=== PATIENT | female | born 1940 | race Caucasian/White ===

== ENCOUNTER 2022-02-19 13:04 | Emergency (ER) | payer OTHER ==
[~2022-02-19] VITALS: Ht 160 cm; Wt 87.1 kg
[2022-02-19] MEDS ORDERED: ARIPIPRAZOLE20 MG PO (13:13)
[2022-02-19] MEDS ORDERED: ATENOLOL50 M1 PO ×2 (13:13→13:14)
[2022-02-19] MEDS ORDERED: TRAZODONE50 MG PO (13:15)
[2022-02-19] MEDS ORDERED: ESCITALOPRAM OX20 MG PO (13:15)
[2022-02-19] MEDS ORDERED: SYMB80 INH (13:17)
[2022-02-19] MEDS ORDERED: ATIVAN0.5 MG PO (13:17)
[2022-02-19] MEDS ORDERED: BUSPIRONE15 MG PO (13:19)
[2022-02-19 13:42] LABS: BASO % 0.2 % (0.0-1.0); EOS # 0.1 10*3/uL (0.0-0.4); EOS % 3.1 % (1.0-4.0); HEMATOCRIT 38.8 % (37.0-47.0); LYMPH # 0.8 10*3/uL (1.3-4.4); LYMPH % 17.9 % (27.0-41.0); MEAN CELL VOLUME 92.6 fl (81.0-99.0); MEAN CORPUSCULAR HGB 27.9 pg (27.0-31.0); MEAN CORPUSCULAR HGB CONC 30.2 g/dl (33.0-37.0); MEAN PLATELET VOLUME 10.5 fl (9.6-12.3); MONO # 0.4 10*3/uL (0.1-1.0); MONO % 10.4 % (3.0-9.0); NEUT # 2.9 10*3/uL (2.3-7.9); NEUT % 68.2 % (47.0-73.0); PLATELET COUNT AUTOMATED 105 10*3/uL (130-400); RED BLOOD COUNT 4.19 10*6/uL (4.10-5.10); RED CELL DISTRI WIDTH 13.4 % (0-14.5); WHITE BLOOD COUNT 4.2 10*3/uL (4.8-10.8)
[2022-02-19 13:50] LABS: ACT PARTIAL THROMBO TIME 25.9 SECONDS (20.0-32.1)
[2022-02-19 14:00] LABS: ALKALINE PHOSPHATASE 57 U/L (45-117); BUN 17 mg/dl (7-24); CHLORIDE 107 mmol/L (98-107); CREATININE 0.74 mg/dL (0.55-1.02); LIPASE 76 U/L (73-393); POTASSIUM 4.1 mmol/L (3.5-5.1); SGOT/AST 24 IU/L (3-35); SGPT/ALT 19 U/L (12-78); SODIUM 146 mmol/L (136-145)
[2022-02-19 17:02] LABS: BILIRUBIN Negative (Negative); BLOOD Negative (Negative); CLARITY Clear (Clear); COLOR Yellow (Yellow); GLUCOSE Negative (Negative); KETONE Negative (Negative); LEUKO ESTERASE Trace (Negative); NITRITE Negative (Negative); SPECIFIC GRAVITY 1.015 (1.001-1.030); UROBILINOGEN 0.2 E.U./dl (0.0-1.0)
[2022-02-19 17:26] LABS: BACTERIA 1+; RBC 0-2 rbc/hpf (0-2)
[2022-02-20] MEDS ORDERED: ATENOLOL25 MG PO (14:41)
[2022-02-20] MEDS ORDERED: TRAZODONE50 MG PO (14:41)
[2022-02-20] MEDS ORDERED: ATIVAN0.5 MG PO (14:42)
[2022-02-20] MEDS ORDERED: BUSPAR15 MG PO (14:44)
[2022-02-25] MEDS ORDERED: RIVASTIGMINE T1.5 M1 PO (08:52)
[2022-02-25] MEDS ORDERED: B121000 MCG/1 IM (08:52)
[2022-02-25] MEDS ORDERED: MIRTAZAPINE15 M2 PO (08:52)
[2022-02-25] MEDS ORDERED: LORAZEPAM1 MG PO (08:52)
[2022-02-25] MEDS ORDERED: NAMENDA-5 PO (08:52)
[2022-02-25] MEDS ORDERED: VITAMIN D3125 MC1 PO (08:52)
[2022-02-25] MEDS ORDERED: LORAZEPAM0.5 MG PO (09:11)
== END 2022-02-19 17:52 | disposition home or self-care (01) ==
LOC: ED 13:04
PROVIDERS: Emergency Medicine
DX: F41.0 Panic disorder [episodic paroxysmal anxiety] (principal); Z88.1 Allergy status to other antibiotic agents; Z79.899 Other long term (current) drug therapy

== ENCOUNTER 2022-02-19 20:26 | Emergency (ER) | payer OTHER ==
[~2022-02-19] VITALS: Ht 160 cm; Wt 85.8 kg
[~2022-02-19 20:26] MED LIST: ARIPIPRAZOLE20 MG PO; ATENOLOL50 M1 PO; ATIVAN0.5 MG PO; BUSPIRONE15 MG PO; ESCITALOPRAM OX20 MG PO; SYMB80 INH; TRAZODONE50 MG PO
[2022-02-20] MEDS ORDERED: TRAZODONE50 MG PO (14:41)
[2022-02-20] MEDS ORDERED: ATENOLOL25 MG PO (14:41)
[2022-02-20] MEDS ORDERED: ATIVAN0.5 MG PO (14:42)
[2022-02-20] MEDS ORDERED: BUSPAR15 MG PO (14:44)
[2022-02-25] MEDS ORDERED: LORAZEPAM1 MG PO (08:52)
[2022-02-25] MEDS ORDERED: NAMENDA-5 PO (08:52)
[2022-02-25] MEDS ORDERED: VITAMIN D3125 MC1 PO (08:52)
[2022-02-25] MEDS ORDERED: MIRTAZAPINE15 M2 PO (08:52)
[2022-02-25] MEDS ORDERED: RIVASTIGMINE T1.5 M1 PO (08:52)
[2022-02-25] MEDS ORDERED: B121000 MCG/1 IM (08:52)
[2022-02-25] MEDS ORDERED: LORAZEPAM0.5 MG PO (09:11)
== END 2022-02-20 01:00 ==
LOC: ED 20:26
DX: S00.83XA Contusion of other part of head, initial encounter (principal); Z88.1 Allergy status to other antibiotic agents; Z79.899 Other long term (current) drug therapy; W18.39XA Other fall on same level, initial encounter; Y93.89 Activity, other specified; Y92.89 Other specified places as the place of occurrence of the external cause; Y99.8 Other external cause status

== ENCOUNTER 2022-05-20 09:21 | Inpatient (IN) | payer OTHER, MEDICAID ==
[~2022-05-20] VITALS: Ht 157.4 cm; Wt 80.3 kg
[~2022-05-20 09:21] MED LIST changes: +ATENOLOL25 MG PO; +B121000 MCG/1 IM; +BUSPAR15 MG PO; +LORAZEPAM0.5 MG PO; +LORAZEPAM1 MG PO; +MIRTAZAPINE15 M2 PO; +NAMENDA-5 PO; +RIVASTIGMINE T1.5 M1 PO; +VITAMIN D3125 MC1 PO
[2022-05-20 09:22] VITALS: BP 135/72
[2022-05-20] MEDS ORDERED: FUROSEMIDE20 M1 PO (09:32)
[2022-05-20] MEDS ORDERED: LORAZEPAM0.5 MG PO (09:33)
[2022-05-20] MEDS ORDERED: OMEPRAZOLE MAGN20 MG PO (09:34)
[2022-05-20] MEDS ORDERED: MIRTAZAPINE15 M2 PO (09:34)
[2022-05-20] MEDS ORDERED: PAROXETINE20 MG PO (09:36)
[2022-05-20] MEDS ORDERED: POTASSIUM CHLO10 ME5 PO (09:36)
[2022-05-20] MEDS ORDERED: RISPERDAL0.5 MG PO (09:36)
[2022-05-20] MEDS ORDERED: SIMVASTATIN40 MG PO (09:37)
[2022-05-20] MEDS ORDERED: VISTARIL50 MG PO (09:38)
[2022-05-20 10:11] LABS: BASO % 0.4 % (0.0-1.0); EOS # 0.1 10*3/uL (0.0-0.4); HEMATOCRIT 39.5 % (37.0-47.0); LYMPH # 0.7 10*3/uL (1.3-4.4); LYMPH % 15.1 % (27.0-41.0); MEAN CELL VOLUME 94.5 fl (81.0-99.0); MEAN CORPUSCULAR HGB 27.8 pg (27.0-31.0); MEAN CORPUSCULAR HGB CONC 29.4 g/dl (33.0-37.0); MEAN PLATELET VOLUME 10.5 fl (9.6-12.3); MONO # 0.5 10*3/uL (0.1-1.0); NEUT # 3.4 10*3/uL (2.3-7.9); NEUT % 71.3 % (47.0-73.0); PLATELET COUNT AUTOMATED 112 10*3/uL (130-400); RED BLOOD COUNT 4.18 10*6/uL (4.10-5.10); RED CELL DISTRI WIDTH 13.1 % (0-14.5); WHITE BLOOD COUNT 4.7 10*3/uL (4.8-10.8)
[2022-05-20 10:29] LABS: ALKALINE PHOSPHATASE 69 U/L (45-117); BUN 18 mg/dl (7-24); CHLORIDE 103 mmol/L (98-107); SGOT/AST 15 IU/L (3-35); SGPT/ALT 14 U/L (12-78); SODIUM 141 mmol/L (136-145); TOTAL PROTEIN 6.3 gm/dL (6.4-8.2)
[2022-05-20 11:18] LABS: BILIRUBIN Negative (Negative); BLOOD Negative (Negative); CLARITY Clear (Clear); COLOR Yellow (Yellow); GLUCOSE Negative (Negative); KETONE Negative (Negative); LEUKO ESTERASE Trace (Negative); NITRITE Negative (Negative); PH 6.5 (4.5-8.0); SPECIFIC GRAVITY 1.015 (1.001-1.030)
[2022-05-20 11:29] LABS: BACTERIA TRACE; RBC 0-2 rbc/hpf (0-2)
[2022-05-20 23:30] VITALS: BP 130/62
[2022-05-21 01:40] VITALS: BP 139/58
[2022-05-21 06:15] LABS: BASO % 0.5 % (0.0-1.0); BUN 17 mg/dl (7-24); CHLORIDE 103 mmol/L (98-107); EOS # 0.1 10*3/uL (0.0-0.4); EOS % 3.7 % (1.0-4.0); HEMATOCRIT 39.1 % (37.0-47.0); LYMPH # 0.8 10*3/uL (1.3-4.4); LYMPH % 20.5 % (27.0-41.0); MEAN CELL VOLUME 95.1 fl (81.0-99.0); MEAN CORPUSCULAR HGB 27.5 pg (27.0-31.0); MEAN CORPUSCULAR HGB CONC 28.9 g/dl (33.0-37.0); MEAN PLATELET VOLUME 11.1 fl (9.6-12.3); MONO # 0.5 10*3/uL (0.1-1.0); MONO % 12.6 % (3.0-9.0); NEUT # 2.4 10*3/uL (2.3-7.9); NEUT % 62.4 % (47.0-73.0); PLATELET COUNT AUTOMATED 107 10*3/uL (130-400); RED BLOOD COUNT 4.11 10*6/uL (4.10-5.10); RED CELL DISTRI WIDTH 13.1 % (0-14.5); SGOT/AST 17 IU/L (3-35); SGPT/ALT 11 U/L (12-78); SODIUM 144 mmol/L (136-145); TOTAL PROTEIN 6.2 gm/dL (6.4-8.2); WHITE BLOOD COUNT 3.8 10*3/uL (4.8-10.8)
[2022-05-21 06:22] LABS: ALKALINE PHOSPHATASE 64 U/L (45-117); FREE T4 0.89 ng/dl (0.76-1.46)
[2022-05-21 06:43] VITALS: BP 129/53
[2022-05-21 08:06] LABS: VITAMIN D, 25-HYDROXY 26.6 ng/mL (30-100)
[2022-05-21 11:00] VITALS: BP 118/62
[2022-05-21 15:37] VITALS: BP 148/102
[2022-05-21 20:00] VITALS: BP 161/89
[2022-05-22 07:15] LABS: CHOLESTEROL 142 mg/dL (<200); TRIGLYCERIDES 120 mg/dl (<150)
[2022-05-22 07:17] LABS: LDL CHOLESTEROL 59 mg/dL (9-159)
[2022-05-22 08:16] VITALS: BP 154/88
[2022-05-22 20:34] VITALS: BP 164/69
[2022-05-23 07:11] VITALS: BP 140/80
[2022-05-23 19:55] VITALS: BP 122/94
[2022-05-24 07:51] VITALS: BP 151/67
[2022-05-24 19:06] VITALS: BP 163/91
[2022-05-25 07:19] VITALS: BP 148/78
[2022-05-25 20:00] VITALS: BP 150/69
[2022-05-26 07:26] VITALS: BP 155/83
[2022-05-26 18:37] VITALS: BP 139/80
[2022-05-27 07:24] VITALS: BP 149/80
[2022-05-27 19:55] VITALS: BP 138/78
[2022-05-28 07:09] VITALS: BP 157/85
[2022-05-28 19:19] VITALS: BP 145/74
[2022-05-29 07:01] VITALS: BP 148/92
[2022-05-29 20:00] VITALS: BP 151/83
[2022-05-30 07:50] VITALS: BP 156/84
[2022-05-30 20:00] VITALS: BP 122/71
[2022-05-31 07:48] VITALS: BP 137/72
[2022-05-31] MEDS ORDERED: VITAMIN D3125 MC1 PO (09:47)
[2022-05-31] MEDS ORDERED: B121000 MCG/1 IM (09:47)
[2022-05-31] MEDS ORDERED: BENZTROPINE ME0.5 MG PO (09:47)
[2022-05-31] MEDS ORDERED: RAMELTEON8 MG PO (09:47)
[2022-05-31] MEDS ORDERED: MIRTAZAPINE15 M2 PO (09:47)
[2022-05-31] MEDS ORDERED: QUETIAPINE FUMA25 MG PO (09:47)
[2022-05-31] MEDS ORDERED: RIVASTIGMINE TAR3 M1 PO (09:47)
[2022-05-31] MEDS ORDERED: MEMANTINE HCL10 MG PO (09:47)
[2022-05-31 19:15] VITALS: BP 136/65
[2022-06-01 07:32] VITALS: BP 151/86
== END 2022-06-01 10:26 | DRG 885 ==
LOC: ED 09:21 → EDHOLD 18:07 → 3N 18:07 → EDHOLD 18:07 → 3N 05-21 12:06 → EDHOLD 05-21 12:06 → 3N 05-21 13:38 → EDHOLD 05-21 13:41 → 3N 05-31 12:05
PROVIDERS: Counselor Professional; Internal Medicine; ADMIT Psychiatry & Neurology Psychiatry; ATTEND Psychiatry & Neurology Psychiatry
DX: F33.3 Major depressive disorder, recurrent, severe with psychotic symptoms (principal); J96.11 Chronic respiratory failure with hypoxia; E44.0 Moderate protein-calorie malnutrition; D61.818 Other pancytopenia; F41.9 Anxiety disorder, unspecified; Z20.822 Contact with and (suspected) exposure to COVID-19; E78.5 Hyperlipidemia, unspecified; I10 Essential (primary) hypertension; J44.9 Chronic obstructive pulmonary disease, unspecified; R73.9 Hyperglycemia, unspecified; E78.2 Mixed hyperlipidemia; E55.9 Vitamin D deficiency, unspecified; F41.1 Generalized anxiety disorder; G30.9 Alzheimer's disease, unspecified; F02.80 Dementia in other diseases classified elsewhere, unspecified severity, without behavioral disturbance, psychotic disturbance, mood disturbance, and anxiety; Z68.32 Body mass index [BMI] 32.0-32.9, adult; Z78.9 Other specified health status; Z90.5 Acquired absence of kidney; Z88.8 Allergy status to other drugs, medicaments and biological substances; Z88.1 Allergy status to other antibiotic agents; Z91.041 Radiographic dye allergy status